=== PATIENT | male | born 1950 | race African-American/Black ===

== ENCOUNTER 2016-10-17 12:19 | Emergency (ER) | payer MEDICARE, OTHER ==
[~2016-10-17] VITALS: Ht 180.3 cm; Wt 85.7 kg
[~2016-10-17 12:19] MED LIST: ALBUTEROL SULF8.5 GM INH; PREDNISONE20 MG ORAL; ZITHROMAX250 MG ORAL
--- NOTE | 2016-10-17 12:57 | Emergency Room Report ---
History of Present Illness General Chief Complaint: Male Urogenital Problems Source: Patient, EMS Present Illness HPI 65 YO M BIBEMS for lower abd pain, cant urinate for "a few days." +BPH, had braden placed before. Denies nausea/vomiting/diarrhea, fever/chills. Allergies: Coded Allergies: No Known Allergies (Unverified , 11/13/15) Patient History Past Medical History: other - BPH Past Surgical History: none Pertinent Family History: none Social History: Denies: alcohol use, drug use, smoking Immunizations: UTD Reviewed Nursing Documentation: PMH: Agreed, PSxH: Agreed Nursing Documentation-PMH Hx Cardiac Problems: Yes - high cholesterol Hx Hypertension: Yes Hx Diabetes: Yes Review of Systems All Other Systems: negative except mentioned in HPI Physical Exam Vital Signs Date Time Temp Pulse Resp B/P Pulse Ox O2 Delivery O2 Flow Rate FiO2 10/17/16 12:11 97.7 78 16 128/77 100 Room Air Sp02 EP Interpretation: reviewed, normal General Appearance: normal inspection, alert, GCS 15, non-toxic, severe distress, other - writhing on stretcher Head: normocephalic, atraumatic Eyes: bilateral eye EOMI, bilateral eye PERRL ENT: normal ENT inspection, hearing grossly normal, normal voice Neck: normal inspection, full range of motion, supple, no bony tend Respiratory: normal inspection, lungs clear, normal breath sounds, no respiratory distress, no retraction, no wheezing Cardiovascular #1: regular rate, rhythm, no edema Gastrointestinal: normal inspection, normal bowel sounds, non tender, soft, no guarding, no hernia Genitourinary: no CVA tenderness, other - bedside sono: profusely enlarged, distended bladder on ultrasound Musculoskeletal: normal inspection, back normal, normal range of motion, Anupam' s Sign negative Neurologic: normal inspection, alert, oriented x3, responsive, custom frame assembler III-XII nml as tested, motor strength/tone normal, speech normal Psychiatric: normal inspection Skin: normal inspection Medical Decision Making Diagnostic Impression: Primary Impression: Distended bladder Additional Impressions: BPH (benign prostatic hyperplasia) Qualified Codes: N40.1 - Benign prostatic hyperplasia with lower urinary tract symptoms Urinary obstruction ER Course Urinary obstruction likely d/t BPH. Relieved with Braden cath. UA: grossly infected Initial dose of Macrobid given here. Rx for macrobid provided DC home with leg bag; advised to keep braden in until cleared by Urology Last Vital Signs Date Time Temp Pulse Resp B/P Pulse Ox O2 Delivery O2 Flow Rate FiO2 10/17/16 12:11 97.7 78 16 128/77 100 Room Air Status: improved Disposition: HOME, SELF-CARE Scripts Nitrofurantoin Monohyd/M-Cryst* (MACROBID 100 MG*) 100 Mg Capsule 100 MG ORAL EVERY 12 HOURS for 7 Days, #13 CAP Prov: EMY SUAREZ M.D. 10/17/16 Referrals: NON PHYSICIAN (PCP) EMY SUAREZ M.D. Oct 17, 2016 12:57
[2016-10-17 13:00] VITALS: BP 128/77
[2016-10-17] MEDS ORDERED: Oxycodone/Acetaminophen 5-325 ORAL ONE (13:15)
[2016-10-17 13:34] LABS: APPEARANCE,URINE CLOUDY; KETONES,URINE NEGATIVE (NEGATIVE); LEUKOCYTE ESTERASE ,URINE 3+ (NEGATIVE); NITRITE,URINE POSITIVE (NEGATIVE); PH,URINE 6 (4.5-8.0); PROTEIN,URINE 3+ (NEGATIVE); UROBILINOGEN,URINE NORMAL MG/DL (0.0-1.0)
[2016-10-17 13:42] LABS: BACTERIA,URINE FEW /HPF; SQUAMOUS EPITHELIAL CELL,UR FEW /LPF (NONE/OCC); WBC,URINE 40-60 /HPF (0 - 0)
[2016-10-17] MEDS ORDERED: NITROFURANTOIN100 M2 ORAL (14:08)
[2016-10-17 15:23] VITALS: BP 118/79
[2016-10-17 16:56] VITALS: BP 124/80
[2016-10-17 16:57] VITALS: BP 124/80
== END 2016-10-17 16:57 | disposition home or self-care (01) ==
LOC: EDBD 12:19 → EMR 12:32
DX: R14.0 Abdominal distension (gaseous) (principal); N40.1 Benign prostatic hyperplasia with lower urinary tract symptoms; N13.9 Obstructive and reflux uropathy, unspecified; E11.9 Type 2 diabetes mellitus without complications; I10 Essential (primary) hypertension
CPT/HCPCS: 81003; 82962; 87086; 87181; 99283

== ENCOUNTER 2017-01-03 11:31 | Emergency (ER) | payer MEDICARE, OTHER ==
[~2017-01-03] VITALS: Ht 180.3 cm; Wt 85.7 kg
[~2017-01-03 11:31] MED LIST changes: +NITROFURANTOIN100 M2 ORAL
[2017-01-03] MEDS ORDERED: UNOBMED (11:35)
[2017-01-03 15:41] VITALS: BP 130/70
--- NOTE | 2017-01-04 14:14 | Emergency Room Report ---
History of Present Illness General Chief Complaint: Male Urogenital Problems Source: Patient Present Illness HPI Patient is a 66-year-old male who presented after having a decreased urine output from his Guzman catheter. Patient recently had Guzman catheter placed to [place] yesterday. Catheter had subsequently stopped draining. The patient was noted to have no recent fever. Patient stated that he had not been vomiting. He reported having generalized pain. He denied fever. Allergies: Coded Allergies: No Known Allergies (Unverified , 11/13/15) Patient History Past Medical History: see triage record Reviewed Nursing Documentation: PMH: Agreed, PSxH: Agreed Nursing Documentation-PMH Past Medical History: No History, Except For Hx Cardiac Problems: Yes - high cholesterol Hx Hypertension: Yes Hx Diabetes: Yes Review of Systems All Other Systems: negative except mentioned in HPI Physical Exam Vital Signs Date Time Temp Pulse Resp B/P Pulse Ox O2 Delivery O2 Flow Rate FiO2 01/03/17 11:29 97.9 86 18 165/92 96 Room Air General Appearance: well appearing, no apparent distress, alert, GCS 15, thin, Chronically Ill Head: normocephalic, atraumatic ENT: hearing grossly normal, normal voice Neck: full range of motion, supple Respiratory: no respiratory distress, speaking full sentences Cardiovascular #1: normal peripheral pulses, no edema Gastrointestinal: normal inspection, non tender Musculoskeletal: normal inspection, no calf tenderness Neurologic: normal inspection, alert, oriented x3, normal gait Psychiatric: mood/affect normal Skin: no rash Medical Decision Making Diagnostic Impression: Primary Impression: Obstructed Guzman catheter Additional Impression: Abnormal urogenital findings ER Course Patient presented for urinary retention. Differential diagnosis included was not limited to Guzman catheter malfunction, malposition, urethritis, urinary tract infection, others. Patient's benign exam and does not appear to require any further imaging or laboratory testing at this time. A Guzman catheter was changed. Patient had good urine output subsequently.The patient is advised to follow up with primary care doctor in 1-2 days. Patient is advised to return if any worsening condition or if any changes in status that are concerning. Last Vital Signs Date Time Temp Pulse Resp B/P Pulse Ox O2 Delivery O2 Flow Rate FiO2 01/03/17 15:41 97.8 78 16 130/70 98 Room Air Status: improved Disposition: HOME, SELF-CARE Condition: Stable Referrals: NON PHYSICIAN (PCP) NOT CHOSEN IPA/MD,REFERRING Patient Instructions: Acute Urinary Retention, Male Magen Kinsey January 04, 2017 14:14
== END 2017-01-03 15:43 | disposition home or self-care (01) ==
LOC: EDBD 11:31 → EMR 13:20
DX: T83.098A Other mechanical complication of other urinary catheter, initial encounter (principal); R82.90 Unspecified abnormal findings in urine; I10 Essential (primary) hypertension; E11.9 Type 2 diabetes mellitus without complications; E78.00 Pure hypercholesterolemia, unspecified; X58.XXXA Exposure to other specified factors, initial encounter; Y93.9 Activity, unspecified; Y92.9 Unspecified place or not applicable
CPT/HCPCS: 51702